=== PATIENT | male | born 1985 | race Caucasian/White ===

== ENCOUNTER 2018-06-09 11:45 | Emergency (ER) | payer OTHER ==
[~2018-06-09] VITALS: Ht 182.9 cm; Wt 121.6 kg
[2018-06-09 11:50] VITALS: BP 141/88; Ht 182.9 cm; Wt 121.6 kg
== END 2018-06-09 12:54 | disposition left against medical advice (07) ==
LOC: ED 11:45
DX: Z53.21 Procedure and treatment not carried out due to patient leaving prior to being seen by health care provider (principal)